=== PATIENT | male | born 1950 ===

== ENCOUNTER 2018-12-20 06:40 | Day surgery (SDC) | payer OTHER ==
[2018-12-20] MEDS: TETRACAINE 0.5% UNIT-DOSE OP PRN ×2 (06:50→07:56)
[2018-12-20] MEDS: BETADINE OPTH PREP OP PRN ×2 (06:50→07:57)
[2018-12-20] MEDS: CYCLOGYL 2% OPTH OP PRN ×3 (06:51→07:01)
[2018-12-20] MEDS ORDERED: ZOFRAN 4 MG/2 ML IVP ONE (07:00)
[2018-12-20] MEDS ORDERED: DEX-MOXI-KETOR OPTH INJ 1/0.5/0.4 MG/ML IO ONE (07:00)
[2018-12-20] MEDS ORDERED: BRIMONIDINE TARTRATE 0.2% OPTH SOL OP PRN (07:00)
[2018-12-20] MEDS ORDERED: BSS WITH EPINEPHRINE OP ONE (07:00)
[2018-12-20] MEDS ORDERED: LIDOCAINE 1%/PHENYLEPHRINE 1.5% BSS (SURGERY) INTRAOCULA ONE (07:00)
[2018-12-20] MEDS ORDERED: LIDOCAINE 1% 20 ML MDV ID STA (07:00)
[2018-12-20 07:06] VITALS: TEMP 97.4
[2018-12-20] MEDS ORDERED: ZOFRAN 4 MG/2 ML ONE (07:48)
[2018-12-20] MEDS ORDERED: SUBLIMAZE ONE (07:48)
[2018-12-20] MEDS ORDERED: VERSED ONE (07:48)
[2018-12-22 15:11] VITALS: BP 121/76
== END 2018-12-20 08:50 | disposition home or self-care (01) ==
LOC: SURG 06:40
PROVIDERS: ATTEND Ophthalmology
DX: H25.811 Combined forms of age-related cataract, right eye (principal)

== ENCOUNTER 2019-01-03 06:02 | Day surgery (SDC) ==
[2019-01-03] MEDS: BETADINE OPTH PREP OP PRN ×2 (06:30→07:13)
[2019-01-03] MEDS: CYCLOGYL 2% OPTH OP PRN ×3 (06:30→06:40)
[2019-01-03] MEDS: TETRACAINE 0.5% UNIT-DOSE OP PRN ×3 (06:30→07:45)
[2019-01-03] MEDS ORDERED: LIDOCAINE 1%/PHENYLEPHRINE 1.5% BSS (SURGERY) INTRAOCULA ONE (06:56)
[2019-01-03] MEDS ORDERED: DEX-MOXI-KETOR OPTH INJ 1/0.5/0.4 MG/ML IO ONE (06:56)
[2019-01-03] MEDS ORDERED: ZOFRAN 4 MG/2 ML IVP ONE (06:56)
[2019-01-03] MEDS ORDERED: LIDOCAINE 1% 20 ML MDV ID STA (06:56)
[2019-01-03] MEDS ORDERED: BSS WITH EPINEPHRINE OP ONE (06:56)
[2019-01-03] MEDS ORDERED: BRIMONIDINE TARTRATE 0.2% OPTH SOL OP PRN (06:56)
[2019-01-03] MEDS ORDERED: ZOFRAN 4 MG/2 ML ONE (07:15)
[2019-01-03] MEDS ORDERED: DECADRON 4 MG/ML SDV ONE (07:15)
[2019-01-03] MEDS ORDERED: TORADOL ONE (07:15)
[2019-01-03] MEDS ORDERED: VERSED ONE (07:15)
[2019-01-03] MEDS ORDERED: SUBLIMAZE ONE (07:15)
[2019-01-03] MEDS ORDERED: BSS IRRIGATION ONE (07:25)
[2019-01-03] MEDS ORDERED: MIOSTAT INTRAOCULA ONE (07:50)
[2019-01-03 12:46] VITALS: TEMP 96.7
[2019-01-03 14:21] VITALS: BP 132/67
== END 2019-01-03 08:40 | disposition home or self-care (01) ==
LOC: SURG 06:02
PROVIDERS: ATTEND Ophthalmology
DX: H25.812 Combined forms of age-related cataract, left eye (principal)